=== PATIENT | male | born 1980 | race Caucasian/White ===

== ENCOUNTER 2021-06-04 10:43 | Emergency (ER) | payer BC, SELFPAY ==
[2021-06-04 10:55] VITALS: BP 146/80; PULSE 75; RESP 20; TEMP 36.7; O2SAT 99
--- NOTE | 2021-06-04 11:04 | ED.URI ---
HPI - URI/Sore Throat General Chief Complaint: Upper Respiratory Infection Stated Complaint: Sinus,Headache,Sore Throat,Ear Irritation Time Seen by Provider: 06/04/21 11:04 Source: patient and RN notes reviewed Mode of arrival: ambulatory Limitations: no limitations History of Present Illness HPI Narrative: 40-year-old male presents with concern for 3-week history of sinus pressure, drainage, headache, bilateral ear ache, sore throat, swollen glands and cough. Reports he has not been taking any [id number] remedies. Reports sinus pressure builds up throughout the day and is worse at night. He denies fever, bodies, chills, sweats. MD elicited complaint: rhinorrhea and nasal congestion Related Data Allergies Allergy/AdvReac Type Severity Reaction Status Date / Time No Known Allergies Allergy Verified 06/04/21 11:04 Review of Systems Review of Systems: CONSTITUTIONAL: Denies malaise, chills, sweats, or fever. EYES: Denies visual changes, redness, or discharge. ENT: Reports rhinorrhea, congestion, sinus pain, otalgia and sore throat. CARDIOVASCULAR: Denies chest pain, palpitations, or edema. RESPIRATORY: Reports cough. Denies dyspnea. GASTROINTESTINAL: Denies abdominal pain, nausea, vomiting, diarrhea SKIN: Denies rash or itching. MUSCULOSKELETAL: Denies myalgia. NEUROLOGIC: Reports headache. All systems reviewed & are unremarkable except as noted in HPI and below PMFSH Comments At time of signature, agree with nursing past medical, surgical, social and family history. There is no relevant family history pertinent to the presenting complaint Exam Narrative: GENERAL: Well-appearing, well-nourished, and in no acute distress. HEAD: Normocephalic EYES: PERRLA, conjunctivae clear ENT: Nares clear, turbinates edematous and erythematous, sinus tenderness. Mucous membranes moist. TM pearly davies with dull light reflex bilaterally; no tragal tenderness. Oropharynx not erythematous without lesions. Tonsils not enlarged and without exudate, no drooling, no hoarseness, no trismus, uvula midline. NECK: Supple. No lymphadenopathy CHEST: Clear to auscultation, breath sounds equal. No wheezing, rhonchi, rales, or stridor. No respiratory distress, speaks in full sentences. HEART: Regular rate and rhythm. No murmur heard. SKIN: Warm, dry, no rash. NEURO: Alert and oriented x3. PSYCH: Normal mood and affect Course Course Emergency Course: Patient is aware of diagnosis, understands and agrees to treatment plan. Anticipatory guidance given. Patient agrees to follow-up as directed and is aware of reasons to seek care at the emergency department. Portions of this record may have been created with voice recognition software Level of Care: Express Care Visit Vital Signs Vital signs: Vital Signs Temperature 98.0 F 06/04/21 10:55 Pulse Rate 75 06/04/21 10:55 Respiratory Rate 20 06/04/21 10:55 Blood Pressure 146/80 H 06/04/21 10:55 Pulse Oximetry 99 06/04/21 10:55 Temperature 98.0 F 06/04/21 10:55 Pulse Rate 75 06/04/21 10:55 Respiratory Rate 20 06/04/21 10:55 Blood Pressure 146/80 H 06/04/21 10:55 Pulse Oximetry 99 06/04/21 10:55 Reviewed. Pt has been instructed to follow up with his primary care provider within the next week regarding his elevated blood pressure today. MDM - URI/Sore Throat MDM Narrative Medical decision making narrative: Differential diagnosis considered: Conner virus, strep pharyngitis, allergic rhinitis, upper respiratory tract infection, sinusitis, rhinosinusitis, nasopharyngitis. viral pharyngitis, otitis media, otitis externa, pneumonia, bronchitis, viral cough syndrome, viral syndrome, and influenza. Exam findings show no acute concerns or changes; patient is non-toxic appearing and is in no distress. Patient is appropriate for outpatient treatment and follow-up. Lab Data Attestation: I reviewed the patient's lab results. Critical Care Time Critical Care Time Critical Care Time: No
== END 2021-06-04 11:16 | disposition home or self-care (01) ==
PROVIDERS: Emergency Provider Nurse Practitioner
DX: J01.90 Acute sinusitis, unspecified (principal); G47.30 Sleep apnea, unspecified; L40.9 Psoriasis, unspecified
CPT/HCPCS: 99203; G0463

== ENCOUNTER 2023-04-28 14:15 | Emergency (ER) | payer BC, SELFPAY ==
--- NOTE | 2023-04-28 14:24 | ED.URI ---
HPI - URI/Sore Throat General Chief Complaint: Ear Stated Complaint: cough,rt ear discomfort Time Seen by Provider: 04/28/23 14:24 Source: patient Mode of arrival: ambulatory Limitations: no limitations History of Present Illness HPI Narrative: Patient is a 42-year-old male that presents with 2 weeks of congestion, cough and sinus pressure. Patient states the last 2 days he has had worsening right ear pain. Has been taking Mucinex and DayQuil along with Flonase. Denies any fever, chills, nausea, vomiting, diarrhea. Related Data Allergies Allergy/AdvReac Type Severity Reaction Status Date / Time No Known Allergies Allergy Verified 04/28/23 14:39 Review of Systems Review of Systems: All systems reviewed & are unremarkable except as noted in HPI and below Constitutional: Constitutional: Denies body ache(s), Denies chills, Denies fatigue, Denies fever(s), Denies headache(s), Denies malaise and Denies weakness Eyes: Eyes: Denies blurry vision, Denies itchy eyes and Denies loss of vision ENT: Reports otalgia, Denies headache(s), Reports nasal congestion, Denies sinus pain, Reports sinus pressure and Denies sore throat Cardiovascular: Cardiovascular: Denies chest pain, Denies irregular heart rhythm and Denies dyspnea Respiratory: Respiratory: Reports cough and Denies dyspnea Gastrointestinal: Gastrointestinal: Denies abdominal pain, Denies diarrhea, Denies nausea and Denies vomiting Musculoskeletal: Musculoskeletal: Denies back pain, Denies myalgias and Denies arthralgias Integumentary/Breasts: Skin/Breast: Denies pruritus and Denies rash Neurologic: Denies headache(s), Denies loss of vision and Denies weakness Psychiatric: Psychiatric: Reports no additional psychiatric complaints Endocrine: Endocrine: Denies fatigue Allergic/Immunologic: Allergic/Immunologic: Denies itchy eyes PMFSH Comments At time of signature, agree with nursing past medical, surgical, social and family history. There is no relevant family history pertinent to the presenting complaint. Exam Const: General: cooperative, healthy appearing, comfortable, no acute distress and well nourished Nutritional Appearance: well nourished Orientation/consciousness: patient oriented x3 Limitations: no limitations HENMT: Head: normal to inspection, normocephalic and atraumatic Ears: hearing grossly normal bilaterally, external ears normal, TM normal on the left, EAC's normal, no periauricular adenopathy and TM abnormal bulging on the right and erythematous on the right Face/Nose/Sinus: Normal external nose present, Abnormal mucous membranes and turbinates present erythematous bilateral and diffuse, normal facial exam, sinuses nontender and face symmetric Face and sinus: normal facial exam, sinuses nontender and face symmetric Mouth: Yes Normal oral and palatal mucosa present, Yes lip normal, Yes tongue normal, Yes Normal salivary glands and ducts present, Yes oropharynx normal and Yes moist mucous membranes Teeth and gingiva: dentition normal Throat: posterior oropharynx normal, tonsils normal and uvula midline Eyes: General: appearance normal, both eyes and all related structures Alignment and Position: alignment normal and position normal Periorbital: periorbital findings normal Eyelids: eyelids normal Pupils: Equal, round and reactive pupils present Neck: Neck: normal visual inspection, full ROM, no lymphadenopathy and supple Chest: Chest palpation & inspection: normal inspection of the chest and normal palpation of entire chest wall Resp: Effort & Inspection: normal respiratory effort and able to speak in complete sentences Auscultation: clear to auscultation bilaterally, no crackles, no rales, no rhonchi and no wheezes Cardio: Rate: regular rate Rhythm: regular rhythm Heart sounds: S1 normal heart sound present and S2 normal heart sound present GI: Inspection: normal to inspection Skin: General skin exam: normal color and no rashes or lesions not
[2023-04-28 14:40] VITALS: BP 146/78; PULSE 93; RESP 18; TEMP 37.3; O2SAT 98
== END 2023-04-28 14:54 | disposition home or self-care (01) ==
PROVIDERS: Emergency Provider Nurse Practitioner Family
DX: H66.001 Acute suppurative otitis media without spontaneous rupture of ear drum, right ear (principal)
CPT/HCPCS: 99213; G0463

== ENCOUNTER 2023-11-11 18:47 | Emergency (ER) | payer BC, SELFPAY ==
--- NOTE | 2023-11-11 19:01 | ED.URI ---
HPI - URI/Sore Throat General Chief Complaint: Upper Respiratory Infection Stated Complaint: sore throat, stomach pain Time Seen by Provider: 11/11/23 19:17 Source: patient and RN notes reviewed Mode of arrival: ambulatory Limitations: no limitations History of Present Illness HPI Narrative: 43-year-old male presents concern for sore throat and stomach ache. Reports symptoms started yesterday. Also report he had right ear pain last week that is resolved. Denies taking medications for his symptoms. Reports his son has similar symptoms MD elicited complaint: sore throat Related Data Home Medications Medication Instructions Recorded Confirmed loratadine 10 mg tablet (Claritin) 10 mg PO DAILY 11/11/23 11/11/23 Allergies Allergy/AdvReac Type Severity Reaction Status Date / Time No Known Allergies Allergy Verified 11/11/23 18:50 Review of Systems Review of Systems: CONSTITUTIONAL: Denies malaise, chills, sweats, or fever. EYES: Denies visual changes, redness, or discharge. ENT: Denies rhinorrhea, congestion, sinus pain, otalgia. Reports sore throat. CARDIOVASCULAR: Denies chest pain, palpitations, or edema. RESPIRATORY: Reports cough. Denies dyspnea. GASTROINTESTINAL: Denies abdominal pain, vomiting, diarrhea. Reports nausea SKIN: Denies rash or itching. MUSCULOSKELETAL: Reports myalgia. NEUROLOGIC: Denies headache. All systems reviewed & are unremarkable except as noted in HPI and below PMFSH Comments At time of signature, agree with nursing past medical, surgical, social and family history. There is no relevant family history pertinent to the presenting complaint Exam Narrative: GENERAL: Well-appearing, well-nourished, and in no acute distress. HEAD: Normocephalic EYES: PERRLA, conjunctivae clear ENT: Nares clear. Mucous membranes moist. TM pearly davies with sharp light reflex bilaterally; no tragal tenderness. Oropharynx erythematous without lesions. Tonsils enlarged and without exudate, no drooling, no hoarseness, no trismus, uvula midline. NECK: Supple. No lymphadenopathy CHEST: Clear to auscultation, breath sounds equal. No wheezing, rhonchi, rales, or stridor. No respiratory distress, speaks in full sentences. HEART: Regular rate and rhythm. No murmur heard. SKIN: Warm, dry, no rash. NEURO: Alert and oriented x3. PSYCH: Normal mood and affect Course Course Emergency Course: Patient is aware of diagnosis, understands and agrees to treatment plan. Anticipatory guidance given. Patient agrees to follow-up as directed and is aware of reasons to seek care at the emergency department. Portions of this record may have been created with voice recognition software Level of Care: Express Care Visit Vital Signs Vital signs: Reviewed. MDM - URI/Sore Throat MDM Narrative Medical decision making narrative: Differential diagnosis considered: Conner virus, strep pharyngitis, allergic rhinitis, upper respiratory tract infection, sinusitis, rhinosinusitis, nasopharyngitis. viral pharyngitis, otitis media, otitis externa, pneumonia, bronchitis, viral cough syndrome, viral syndrome, and influenza. Exam findings show no acute concerns or changes; patient is non-toxic appearing and is in no distress. Patient is appropriate for outpatient treatment and follow-up. Lab Data Attestation: I reviewed the patient's lab results. Critical Care Time Critical Care Time Critical Care Time: No Discharge Plan Discharge Clinical Impression: Upper respiratory infection Patient Disposition: Home, Self-Care Condition: Stable Instructions: Upper Respiratory Infection (ED) Additional Instructions: Your rapid COVID test negative Your rapid strep swab was negative today at [facility]. A throat culture will be sent to the laboratory for further testing. If the test is positive, you will receive a phone call within 48 hours and an appropriate antibiotic will be initiated at that time. Your symptoms are likely d
[2023-11-11 19:04] VITALS: BP 134/78; PULSE 77; RESP 16; TEMP 36.6; O2SAT 96
[2023-11-11 19:18] LABS: EDSTREPNEGPOS1 Negative
== END 2023-11-11 19:27 | disposition home or self-care (01) ==
PROVIDERS: Emergency Provider Nurse Practitioner
DX: J06.9 Acute upper respiratory infection, unspecified (principal); Z20.822 Contact with and (suspected) exposure to COVID-19; G47.30 Sleep apnea, unspecified; L40.9 Psoriasis, unspecified; Z86.16 Personal history of COVID-19
CPT/HCPCS: 87081; 87426; 87880; 99213; G0463

== ENCOUNTER 2024-01-16 12:18 | Emergency (ER) | payer BC, SELFPAY ==
[2024-01-16 12:34] VITALS: BP 142/93; PULSE 70; RESP 17; TEMP 36.3; O2SAT 98
--- NOTE | 2024-01-16 13:56 | ED.WOUNDLAC ---
HPI - Wound/Laceration General Chief Complaint: Wound/Laceration Stated Complaint: lac Time Seen by Provider: 01/16/24 13:50 Source: patient and family Mode of arrival: ambulatory Limitations: no limitations History of Present Illness HPI narrative: [id number] patient presents with a laceration of the right tip of the 5th finger sustained using a mandolin. he does not know his last tetanus shot. He is not on anticoagulation. He has not yet taken anything for pain but states that the pain is 2/10 when at rest but 6/10 when the fingers touched or bumped. Related Data Home Medications Medication Instructions Recorded Confirmed loratadine 10 mg tablet (Claritin) 10 mg PO DAILY 11/11/23 11/11/23 Allergies Allergy/AdvReac Type Severity Reaction Status Date / Time No Known Allergies Allergy Verified 01/16/24 12:40 [facility] Past Medical History Medical History Right hand dominant Exam Narrative: GENERAL: Well-appearing, well-nourished, and in no acute distress. HEAD: Normocephalic, atraumatic. EYES: Non injected, non icteric ENT: Nares clear, no rhinorrhea or epistaxis. NECK: Supple. CHEST: Speaking in full sentences. No respiratory distress. HEART: Regular rate and rhythm. brisk capillary refill. ABDOMEN: Soft, nondistended. EXTREMITIES: Normal range of motion particularly in the digits of the finger. SKIN: Warm, dry. Very distal aspect of right 5th digit has sustained an avulsion of the soft tissue which also included a segment of the most distal aspect of the fingernail. No nailbed avulsion or involvement of the lunula or paronychia. no subungual hematoma NEURO: No focal deficits. Alert and oriented x3. PSYCH: Normal mood and affect. Course Vital Signs Vital signs: Vital Signs Temperature 97.4 F L 01/16/24 12:34 Pulse Rate 70 01/16/24 12:34 Respiratory Rate 17 01/16/24 12:34 Blood Pressure 142/93 H 01/16/24 12:34 Pulse Oximetry 98 01/16/24 12:34 Temperature 97.4 F L 01/16/24 12:34 Pulse Rate 70 01/16/24 12:34 Respiratory Rate 17 01/16/24 12:34 Blood Pressure 142/93 H 01/16/24 12:34 Pulse Oximetry 98 01/16/24 12:34 MDM - Wound/Laceration MDM Narrative Medical decision making narrative: [id number] 43-year-old male patient presents with an injury to his right 5th finger when he cut the tip it off using a mandolin. In the emergency department he is afebrile with vital signs notable for hypertension. Last tetanus unknown so will update today. wound is explored irrigated. it only involves the very distal most aspect of the finger tip and fingernail and otherwise bleeding is well controlled. nothing to repair. discussed wound care with patient and antibiotic ointment with non adherent dressing is applied. Areas covered with a metal finger splint to protect it. patient given acetaminophen for analgesia. Discharged in stable condition. Differential Diagnosis Differential diagnosis: Likely laceration, abrasion, avulsion of skin and other ( Considered nail bed injury including avulsion, subungual hematoma) Discharge Plan Discharge Clinical Impression: Avulsion of nail of right little finger, Avulsion of fingertip Patient Disposition: Home, Self-Care Condition: Stable Instructions: Antibiotic Form, Skin Avulsion (ED), Nail Avulsion (ED) Additional Instructions: Your tetanus was updated today. Keep the wound clean warm and dry. It is safe to use warm soapy water. Make sure it is fully dry before applying a new bandage each day. No need to use hydrogen peroxide or Neosporin. You can use the prescribed pain medications and they are safe to take together. Follow-up with your primary care physician; if you do not have 1 the name of doctors listed below. Return to the emergency department with any new or worsening symptoms or signs of infection such as draining pus, streaking redness, swelling not improving, etc. Prescriptions: New acetaminophen 500 mg capsule 1,000 mg PO Q6H PRN (Reason: pain) Qty: 20 0RF ibuprofen 600 mg tablet 600 mg PO TID PRN (Reason: pain) Qty: 20 0RF No Action loratadine [Claritin] 10 mg Tablet 10 mg PO DAILY Follow-up/Referrals: Tadeo Schuster MD [Physician] - (Family practice) UNKNOWN,DOCTOR [Primary Care Provider] - Stand Alone Forms: Work/School Release IP Time of Disposition: 14:30
[2024-01-16] MEDS: ACETAMINOPHEN 500 MG TABLET 1000 MG PO (14:20)
[2024-01-16] MEDS: BACITRACIN OINTMENT 15 GM TUBE 1 APPLIC TOPICAL (14:20)
[2024-01-16] MEDS: TETANUS,DIPHTHERIA,AC PERTUSSIS ADULT (0.5 ML) BOOSTRIX IM (14:21)
== END 2024-01-16 14:54 | disposition home or self-care (01) ==
PROVIDERS: Emergency Provider Student in an Organized Health Care Education/Training Program
DX: S61.216A Laceration without foreign body of right little finger without damage to nail, initial encounter (principal); Z23 Encounter for immunization; W27.4XXA Contact with kitchen utensil, initial encounter
CPT/HCPCS: 90471; 90715; 99283; A9270

== ENCOUNTER 2024-03-25 18:43 | Emergency (ER) | payer BC, SELFPAY ==
--- NOTE | ~2024-03-25 | CT_ITS ---
EXAMINATION: CT abdomen pelvis wo con DATE: 03/26/2024 00:45 INDICATION: Left CVA tenderness, hematuria TECHNIQUE: Computed tomography (CT) of the abdomen and pelvis was performed without intravenous contr ast. Automated exposure control and iterative reconstruction technique were employed. Exam dose: 183 4.79 mGy-cm total exam DLP. COMPARISON: None. FINDINGS: The lung bases are clear. Normal heart size. No pericardial or pleural effusion. The gallbladder is contracted. The liver, spleen, pancreas and adrenal glands are unremarkable. No renal mass lesion is evident on this limited noncontrast examination. No urinary tract calculus or hydroureteronephrosis. Normal caliber of the abdominal aorta. No intraperitoneal or retroperitoneal or pelvic mass lesion or adenopathy or ascites. The urinary bladder, prostate gland and seminal vesicles are unremarkable. Normal appendix. There is mild diverticulosis of the sigmoid colon; no CT evidence of diverticulitis. No bowel obstruc tion, bowel wall thickening, pneumatosis or intraperitoneal free air. Small fat-containing umbilical hernia. No suspicious osteolytic or osteoblastic lesions. IMPRESSION: Mild diverticulosis of sigmoid colon; no evidence of diverticulitis Normal appendix No urinary tract calculi or hydroureteronephrosis Reviewed, dictated and finalized at [facility] Reviewed, dictated and finalized at [facility] [employer] IMPRESSION: Mild diverticulosis of sigmoid colon; no evidence of diverticuliti s Normal appendix No urinary tract calculi or hydroureteronephrosis
[2024-03-25 19:15] VITALS: BP 163/69; PULSE 115; RESP 18; TEMP 37; O2SAT 98
[2024-03-25 23:51] VITALS: BP 140/91; PULSE 101; RESP 18; O2SAT 96
--- NOTE | 2024-03-26 00:27 | ED.MALEGU ---
HPI - Male Genitourinary General Chief complaint: Urogenital-Male Stated complaint: hematuria for 2 hours Time Seen by Provider: 03/26/24 00:13 History of Present Illness HPI Narrative: 43 y/o M with no PMHx presents to the ED for hematuria since 1600 today. States for the past 2 months, he has had the sensation that he has not fully emptied his bladder. Patient states around 1400 he began having urinary frequency and urgency. 2 hours later he began having gross hematuria with clots and increased dysuria. He denies abdominal pain, fever, nausea or vomiting. Denies history of similar episode in the past. He does state he feels some pressure in his rectum/perineum. Denies pain with ejaculation. Denies penile discharge or concern for STDs. Related Data Home Medications ?Medication ?Instructions ?Recorded ?Confirmed ?Last Taken ?Type loratadine 10 mg tablet (Claritin) 10 mg PO DAILY 11/11/23 11/11/23 Unknown History Allergies Allergy/AdvReac Type Severity Reaction Status Date / Time No Known Allergies Allergy Verified 01/16/24 12:40 Review of Systems Review of Systems: All systems reviewed & are unremarkable except as noted in HPI and below PMFSH Past Medical History Medical History Right hand dominant Exam Narrative: GENERAL: Well-appearing, well-nourished, and in no acute distress. HEAD: Normocephalic, atraumatic. EYES: EOMI. ENT: Nares clear, no rhinorrhea or epistaxis. Mucous membranes moist. NECK: Supple. CHEST: Clear to auscultation. No respiratory distress. HEART: Regular rate and rhythm. No murmur heard. Normal peripheral pulses. ABDOMEN: Soft, nontender, nondistended, normal active bowel sounds. No rebound, guarding or rigidity. Minimal left-sided CVA tenderness EXTREMITIES: Normal range of motion. No edema. SKIN: Warm, dry, no rash. NEURO: No focal deficits. Alert and oriented x3 Course Vital Signs Vital signs: Vital Signs Temperature 98.6 F 03/25/24 19:15 Pulse Rate 115 H 03/25/24 19:15 Respiratory Rate 18 03/25/24 19:15 Blood Pressure 163/69 H 03/25/24 19:15 Pulse Oximetry 98 03/25/24 19:15 Temperature 98.6 F 03/25/24 19:15 Pulse Rate 101 H 03/25/24 23:51 Respiratory Rate 18 03/25/24 23:51 Blood Pressure 140/91 H 03/25/24 23:51 Pulse Oximetry 96 03/25/24 23:51 MDM - Male Genitourinary MDM Narrative Medical decision making narrative: 43-year-old male presents to emergency department for urinary frequency, urgency and dysuria since this afternoon. See HPI for further history. Triage vitals with tachycardia 115 which has since improved. He is afebrile and nontoxic appearing. Exam is significant for the above. CBC with leukocytosis of 15.6, normal hemoglobin. Chemistries are unremarkable with a normal creatinine of 0.85 and BUN of 11. Urinalysis shows a large amount of hematuria, greater than 100 wbc's and positive nitrites concerning for infection. CT abdomen pelvis obtained which shows no acute intra-abdominal or pelvic findings, no ureteral stones. Workup discussed with the patient. Given urinalysis concerning for infection and reported symptoms of bladder outlet obstruction and bulging sensation in the perineum, and concern for prostatitis. He denies possibility of STDs. Will treat with ciprofloxacin for 28 days and provide azo and Flomax for symptoms. He was given urology follow-up and return precautions. He and his are agreeable with the plan verbalized understanding. Discharged in stable condition. Lab Data 03/26/24 01:29 03/26/24 01:29 Labs: Lab Results 03/26/24 Range/Units 01:29 WBC Pending RBC Pending Hgb Pending Hct Pending MCV Pending MCH Pending MCHC Pending RDW Pending Plt Count Pending MPV Pending Immature Gran % (Auto) Pending Neut % (Auto) Pending Lymph % (Auto) Pending [place] % (Auto) Pending Eos % (Auto) Pending Baso % (Auto) Pending Lymph # (Auto) Pending [place] # (Auto) Pending Eos # (Auto) Pending Baso # (Auto) Pending Abs Immat Gran (auto) Pending Absolute Neuts (auto) Pending Absolute Nucleated RBC Pending Nucleated RBC % Pending PT 14.3 (11.1-14.7) Seconds INR 1.1 APTT 25.5 (22.3-36.8) Seconds Sodium 135 L (137-145) mmol/L Potassium 3.6 (3.4-5.0) mmol/L Chloride 99 (98-107) mmol/L Carbon Dioxide 25 (22-30) mmol/L Anion Gap 11 (4-12) mmol/L BUN 11 (9-20) mg/dL Creatinine 0.85 (0.7-1.3) mg/dL Estim Creat Clear Calc 145 ml/min Estimated GFR > 60 (59 - ) Glucose 145 H (65-110) mg/dL Calcium 8.8 (8.4-10.2) mg/dL Total Bilirubin 1.5 H (0.2-1.3) mg/dL AST 24 (17-59) U/L ALT 31 (6-50) U/L Alkaline Phosphatase 83 (38-126) U/L Total Protein 7.0 (6.3-8.2) g/dL Albumin 4.1 (3.5-5.1) g/dL Urine Color Light brown H (Yellow) Urine Appearance Turbid H (Clear) Urine pH 6.5 (5.0-9.0) Ur Specific [place] 1.025 (1.001-1.035) Urine Protein 3+ H (Negative) mg/dL Urine Glucose (UA) Negative (Negative) mg/dL Urine Ketones 1+ H (Negative) mg/dL Ur Blood (Man) 3+ H (Negative) Urine Nitrate Positive H (Negative) Urine Bilirubin 1+ H (Negative) Urine Urobilinogen 1.0 (<2.0) mg/dL Leukocyte Esterase Rfl 2+ H (Negative) SRIRAM/UL Urine RBC >100 H (0-2) /hpf Urine WBC >100 H (0-3) /hpf Ur Squamous Epith Cells None seen (Few) /hpf Urine Bacteria Rare /hpf Urine Casts 3-5 Discharge Plan Discharge Clinical Impression: Gross hematuria Prostatitis Qualifiers: Prostatitis type: acute Qualified Code(s): N41.0 - Acute prostatitis Patient Disposition: Home, Self-Care Condition: Stable Instructions: Antibiotic Form, Prostatitis (ED) Additional Instructions: Take the antibiotics daily as directed. Take the tamsulosin to help you empty your bladder. Take the Pyridium for symptoms of bladder spasms and burning with urination. Follow-up with urology. Return to the emergency department if you develop abdominal pain, flank pain, you are not urinating, you develop a fever, vomiting or other concerning symptoms. Patient Language: Kyrgyz Prescriptions: New ciprofloxacin HCl 500 mg tablet 500 mg PO Q12H 28 Days Qty: 56 0RF tamsulosin [Flomax] 0.4 mg capsule 0.4 mg PO HS Qty: 20 0RF phenazopyridine [Pyridium] 100 mg tablet 100 mg PO TID PRN (Reason: pain) Qty: 6 0RF No Action loratadine [Claritin] 10 mg Tablet 10 mg PO DAILY acetaminophen 500 mg capsule 1,000 mg PO Q6H PRN (Reason: pain) Qty: 20 0RF ibuprofen 600 mg tablet 600 mg PO TID PRN (Reason: pain) Qty: 20 0RF Follow-up/Referrals: PHYSICIAN NOT ON STAFF,NONSTAFF [Primary Care Provider] - Iraj Pascual MD [Physician] -
[2024-03-26 01:47] LABS: Bacteria Urine Rare /hpf; RBC Urine >100 /hpf (0-2); Squamous Epithelial Cell Urine None Seen /hpf (Few); WBC Urine >100 /hpf (0-3)
[2024-03-26 01:52] LABS: Add Urine Microscopic? YES; Appearance Urine Turbid (Clear); Bilirubin Urine 1+ (Negative); Blood Urine 3+ (Negative); Color Urine Light Brown (Yellow); Glucose Urine UA Negative (Negative); Ketones Urine 1+ mg/dL (Negative); Leukocyte Esterase Ur 2+ LEU/UL (Negative); Nitrate Urine Positive (Negative); Protein Urine 3+ mg/dL (Negative); Specific Grav Ur 1.025 (1.001-1.035); pH Urine 6.5 (5.0-9.0)
[2024-03-26 01:55] LABS: Alanine Aminotransferase 31 U/L (6-50); Albumin Level 4.1 g/dL (3.5-5.1); Alkaline Phosphatase 83 U/L (38-126); Anion Gap 11 mmol/L (4-12); Aspartate Amino Transferase 24 U/L (17-59); Bilirubin,Total 1.5 mg/dL (0.2-1.3); Blood Urea Nitrogen 11 mg/dL (9-20); Calcium 8.8 mg/dL (8.4-10.2); Carbon Dioxide 25 mmol/L (22-30); Chloride 99 mmol/L (98-107); Estimated CRCL calculation 145 ml/min; Estimated Glomerular Filt Rate > 60; Glucose 145 mg/dL (65-110); INR 1.1; Potassium 3.6 mmol/L (3.4-5.0); Prothrombin Time 14.3 Seconds (11.1-14.7); Sodium 135 mmol/L (137-145)
[2024-03-26 01:56] LABS: Partial Thromboplastin Time 25.5 Seconds (22.3-36.8)
[2024-03-26 02:38] LABS: Basophils Percent Auto 0.3 % (0.2-1.2); Eosinophils Percent Auto 0.1 % (0-4.4); Hematocrit 43.2 % (42.0-52.0); Hemoglobin 14.6 g/dL (14.0-18.0); Immature Granulocyte Absolute 0.06 K/mm3 (0.00-0.031); Immature Granulocyte Percent A 0.4 % (0-0.5); Lymphocytes Absolute Auto 1.12 K/mm3 (0.9-3.2); Lymphocytes Percent Auto 7.2 % (18.3-44.2); Mean Corpuscular HGB Conc 33.8 g/dl (32-36); Mean Corpuscular Hemoglobin 29.4 pg (26-34); Mean Corpuscular Volume 87.1 fl (80-100); Mean Platelet Volume 10.6 fl (7.4-10.4); Monocytes Absolute Auto 1.1 K/mm3 (0.1-0.6); Monocytes Percent Auto 7.2 % (2.6-8.5); Neutrophils Absolute Auto 13.2 K/mm3 (1.3-6.7); Neutrophils Percent Auto 84.8 % (45.5-73.1); Platelet Count Result 244 k/mm3 (150-375); Red Blood Count 4.96 M/mm3 (4.6-6.20); Red Cell Distribution Width 13.2 % (11.5-14.5); White Blood Count 15.6 K/mm3 (4.5-10.0)
[2024-03-26] MEDS: CIPROFLOXACIN 500 MG TAB PO (02:39)
[2024-03-26 02:43] VITALS: BP 132/88; PULSE 71; RESP 14; O2SAT 100
== END 2024-03-26 02:45 | disposition home or self-care (01) ==
PROVIDERS: Emergency Medicine; Emergency Provider Physician Assistant
DX: N41.0 Acute prostatitis (principal); R31.0 Gross hematuria
CPT/HCPCS: 36415; 74176; 80053; 81001; 85025; 85610; 85730; 87077; 87086; 87186; 99284; A9270